=== PATIENT | female | born 1945 | race Caucasian/White ===

== ENCOUNTER 2016-05-18 10:39 | Day surgery (SDC) | payer MEDICARE, BC ==
[2016-05-18] MEDS ORDERED: Lactated Ringers 1,000 ML IV SCH (11:45)
[2016-05-18] MEDS ORDERED: Propofol 200 MG/20 ML SDV ONE (13:01)
[2016-05-18] MEDS ORDERED: fentaNYL 100 MCG/2 ML SDV ONE (13:01)
[2016-05-18] MEDS ORDERED: Midazolam 1 MG/ML 2 ML SDV ONE (13:01)
[2016-05-18 14:38] VITALS: BP 131/69
--- NOTE | 2016-05-19 07:26 | OR ---
DATE OF PROCEDURE: 05/19/2015 PREOP DIAGNOSIS: Strong family history of colon cancer--brother of colon cancer. POSTOP DIAGNOSIS: Strong family history of colon cancer--rother of colon cancer. Two colon polyps, right colon and distal rectum. PROCEDURE: Colonoscopy to the cecum with biopsy resection of small right colon polyp and biopsy followed by snare cautery polypectomy of larger distal rectal polyp. ANESTHESIA: IV anesthesia with monitored anesthesia care. INDICATION: This 70-year-old white female is referred for a colonoscopy because of strong family history of colon cancer. Her brother of colon cancer. She says her last colonoscopic exam was in 2010. I counseled her for the procedure including risks and alternatives, and she gave her informed consent to proceed. PROCEDURE IN DETAIL: The patient was placed in the left lateral decubitus position. IV anesthesia was administered by the Anesthesia Service. Time-out was held. A rectal exam was performed, which was unremarkable. The flexible video Olympus colonoscope was introduced through her anus, up her rectum, and out her colon all way to the cecum. En route, in the right colon, we saw a small polyp, which was removed with the biopsy forceps. Once the cecum was reached, the scope was slowly withdrawn examining the mucosa throughout. No additional mucosal abnormalities were noted until we reached the distal rectum. Here, we saw a fairly large polyp. We initially biopsied this and then placed a snare about its base. The polyp was elevated up away from the bowel wall and amputated as electrocautery was applied. The polyp was aspirated through the scope and captured in a polyp trap. The scope was retroflexed with the distal rectum appearing well. The scope was straightened and removed. She tolerated the procedure well. Eladio Robledo MD /[id number] [facility]
== END 2016-05-18 14:47 | disposition home or self-care (01) ==
LOC: JP.SDS 10:39
PROVIDERS: ATTEND Surgery
DX: Z12.11 Encounter for screening for malignant neoplasm of colon (principal); D12.2 Benign neoplasm of ascending colon; D12.8 Benign neoplasm of rectum
CPT/HCPCS: 45380; 45385; 88305; J2250; J2704; J3010; J7120

== ENCOUNTER 2016-05-24 09:55 | Emergency (ER) | payer MEDICARE, BC ==
[2016-05-24 10:05] VITALS: BP 128/71
--- NOTE | 2016-05-24 10:25 | EDM.PDOC ---
ED HPI GI/ABDOMINAL - General Chief Complaint: Gastrointestinal Problem Stated Complaint: HAD COLONOSCOPY/HAVING BLEEDING Time Seen by Provider: 05/24/16 10:14 Source: Reports: Patient, RN notes reviewed History Limitations: Reports: No limitations - History of Present Illness INITIAL COMMENTS - FREE TEXT/NARRATIVE: 70-year-old female presents emergency department for a complaint of large bloody stool with clots happened early this morning, she is postop day 6 from a colonoscopy review of colonoscopy records show that she had a polypectomy one large polyp done via hot snare in the rectal vault area she denies any abdominal pain nausea vomiting or lightheadedness - Related Data Allergies/ADRs: Allergies Allergy/AdvReac Type Severity Reaction Status Date / Time No Known Allergies Allergy Verified 01/15/13 08:57 Home Meds: Home Meds Niacin 500 mg PO DAILY 05/17/16 [History] [place]-3 Fatty Acids [Fish Oil] 1,200 mg PO DAILY 05/17/16 [History] Pravastatin [Pravachol] 80 mg PO BEDTIME 05/17/16 [History] Past Medical History Cardiovascular History: Reports: High cholesterol Gastrointestinal History: Reports: Chronic constipation, Colon polyp, Diverticulosis [employer]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: Reports: , Spontaneous Musculoskeletal History: Reports: Arthritis, Fracture Dermatologic History: Reports: Other (see below) Other Dermatologic History: rosacia - Infectious Disease History Infectious Disease History: Reports: Chicken pox, Measles, Mumps - Past Surgical History Cardiovascular Surgical History: Reports: None GI Surgical History: Reports: Appendectomy, Cholecystectomy, Colonoscopy, EGD, Polypectomy, Small bowel Female Surgical History: Reports: section, D&C, Other (see below) Other Female Surgeries/Procedures: had D&C 06-03-2015 Musculoskeletal Surgical History: Reports: Carpal tunnel Dermatological Surgical History: Reports: None Social & Family History - Family History Cardiac: Reports: Hypertension : Reports: Renal calculus Musculoskeletal: Reports: Arthritis Endocrine/Metabolic: Reports: Diabetes, type II Oncologic: Reports: Colon - Tobacco Use Smoking Status *Q: Never Smoker - Caffeine Use Caffeine Use: Reports: Soda - Recreational Drug Use Recreational Drug Use: No ED ROS GENERAL - Review of Systems Review Of Systems: See Below Constitutional: Reports: no symptoms Respiratory: Reports: No Symptoms Cardiovascular: Reports: No symptoms GI/Abdominal: Reports: Bloody stool. Denies: Abdominal pain, Constipation, Diarrhea, Nausea, Vomiting ED EXAM, GI/ABD - Physical Exam Exam: See Below Exam Limited By: No limitations General Appearance: alert, WD/WN, no apparent distress Respiratory/Chest: no respiratory distress, lungs clear, normal breath sounds, no accessory muscle use Cardiovascular: regular rate, rhythm, no murmur GI/Abdominal: soft, non tender Course - Vital Signs Last Recorded V/S: Last Vital Signs Temp 96.6 F 05/24/16 10:04 Pulse 66 05/24/16 10:04 Resp 16 05/24/16 10:04 BP 128/71 05/24/16 10:04 Pulse Ox 97 05/24/16 10:04 - Orders/Labs/Meds Labs: Laboratory Tests 05/24/16 05/24/16 Range/Units 10:31 10:31 WBC 5.4 (4.5-11.0) K/uL RBC 4.84 (3.30-5.50) M/uL Hgb 15.3 H (12.0-15.0) g/dL Hct 43.7 (36.0-48.0) % MCV 90 (80-98) fL MCH 32 H (27-31) pg MCHC 35 (32-36) % Plt Count 250 (150-400) K/uL Neut % (Auto) 48 (36-66) % Lymph % (Auto) 38 (24-44) % Gregg % (Auto) 12 H (2-6) % Eos % (Auto) 2 (2-4) % Baso % (Auto) 1 (0-1) % Sodium 142 (140-148) mmol/L Potassium 3.9 (3.6-5.2) mmol/L Chloride 106 (100-108) mmol/L Carbon Dioxide 27 (21-32) mmol/L Anion Gap 8.6 (5.0-14.0) mmol/L BUN 18 (7-18) mg/dL Creatinine 1.0 (0.6-1.0) mg/dL Est Cr Clr Drug Dosing 49.32 mL/min Estimated GFR (MDRD) 55 L (>60) Glucose 95 (74-106) mg/dL Calcium 8.8 (8.5-10.1) mg/dL Departure - Departure Time of Disposition: 12:04 Disposition: Home, Self-Care 01 Condition: good Clinical Impression: Colonoscopy causing post-procedural bleeding Forms: ED Department Discharge Additional Instructions: Please followup with your primary care provider in 3-5 days if not better, please call return to the emergency department with worsening of symptoms. - Assessment/Plan Plan: Assessment Acuity = acute Site and laterality = bright red blood per stool Etiology = secondary to snare polypectomy. Postop day #6 Manifestations = none Location of injury = home Lab values = CBC, BMP, upright abdominal film within normal limits Plan Called and discussed the case with Dr. Robledo general surgery recommended watchful waiting follow clinic as needed Patient was in agreement with the plan all questions were answered, they were instructed to return to the emergency department or call for worsening symptoms. This note was dictated using [employer] voice recognition software please call with any questions.
--- NOTE | 2016-05-24 11:30 | CR ---
No evidence for free air. Nonobstructive bowel gas pattern. Moderate amount of fecal residual.
== END 2016-05-24 12:13 | disposition home or self-care (01) ==
LOC: JP.ED 09:55
DX: K91.840 Postprocedural hemorrhage of a digestive system organ or structure following a digestive system procedure (principal); E78.00 Pure hypercholesterolemia, unspecified; Z90.49 Acquired absence of other specified parts of digestive tract; Z79.899 Other long term (current) drug therapy; Z98.890 Other specified postprocedural states
CPT/HCPCS: 36415; 74000; 74000-26; 80048; 85025; 99284

== ENCOUNTER 2017-02-24 06:44 | Day surgery (SDC) | payer MEDICARE, BC ==
[2017-02-24] MEDS ORDERED: fentaNYL 100 MCG/2 ML SDV ONE (07:25)
[2017-02-24] MEDS ORDERED: Propofol 200 MG/20 ML SDV ONE (07:25)
[2017-02-24] MEDS ORDERED: Midazolam 1 MG/ML 2 ML SDV ONE (07:25)
[2017-02-24] MEDS ORDERED: Lactated Ringers 1,000 ML IV SCH (07:30)
[2017-02-24 10:08] VITALS: BP 120/82
--- NOTE | 2017-02-24 12:48 | OR ---
DATE OF PROCEDURE: 02/24/2017 PREOPERATIVE DIAGNOSIS: History of adenomatous colon polyps. POSTOPERATIVE DIAGNOSES: Three small cecal polyps near each other and history of adenomatous colon polyps. PROCEDURES: Colonoscopy to the cecum with biopsy resection of 3 cecal polyps, sent to the laboratory as one specimen. SURGEON: Eladio Robledo MD. ANESTHESIA: IV anesthesia with monitored anesthesia care. INDICATION: This 71-year-old white female is here for a colonoscopy. She has history of a right colon tubular adenoma and a distal rectum tubulovillous adenoma. I counseled her for a colonoscopy with possible biopsy and/or polypectomy including risks and alternatives, and she gave her informed consent to proceed. DESCRIPTION OF PROCEDURE: The patient was placed in the left lateral decubitus position. IV anesthesia was administered by the Anesthesia Service. Time-out was held. A rectal exam was performed, which was unremarkable. The flexible video Olympus colonoscope was introduced through her anus, up her rectum, and out her colon all the way to the cecum. In the cecum, we saw three separate polyps, and these were removed with the biopsy forceps. They were fairly small. They were sent to the laboratory as one specimen. The scope was then slowly withdrawn, examining the mucosa throughout. No right colon polyp was seen. The one from before was gone. The scope was withdrawn further and no other lesions were noted. The scope was retroflexed in the rectum with the distal rectum appearing unremarkable. No evidence of a persistent polyp here. The scope was straightened and removed. She tolerated the procedure well. Eladio Robledo MD /[id number] [facility]
== END 2017-02-24 10:05 | disposition home or self-care (01) ==
LOC: JP.SDS 06:44
PROVIDERS: ATTEND Surgery
DX: Z12.11 Encounter for screening for malignant neoplasm of colon (principal); D12.0 Benign neoplasm of cecum; Z86.010 Personal history of colon polyps
CPT/HCPCS: 45380; J2250; J2704; J3010; J7120; 88305

== ENCOUNTER 2018-03-23 06:22 | Day surgery (SDC) | payer MEDICARE, BC ==
[2018-03-23] MEDS ORDERED: Lactated Ringers 1,000 ML IV SCH (07:00)
[2018-03-23] MEDS ORDERED: Midazolam 1 MG/ML 2 ML SDV ONE (07:22)
[2018-03-23] MEDS ORDERED: Propofol 200 MG/20 ML SDV ONE (07:22)
[2018-03-23] MEDS ORDERED: fentaNYL 100 MCG/2 ML SDV ONE (07:22)
[2018-03-23 09:25] VITALS: BP 111/60
--- NOTE | 2018-03-23 10:54 | OR ---
DATE OF PROCEDURE: 03/23/2018 PREOPERATIVE DIAGNOSES: History of polyps, strong family history of colon cancer-- brother of colon cancer. POSTOPERATIVE DIAGNOSES: Small distal rectal polyp, history of polyps, strong family history of colon cancer--brother of colon cancer. PROCEDURE PERFORMED: Colonoscopy to the cecum with biopsy resection of small distal rectal polyp. SURGEON: Eladio Robledo MD. ANESTHESIA: IV anesthesia with monitored anesthesia care. INDICATION: This 72-year-old white female was referred for a colonoscopy because of a history of colon polyps and a strong family history of colon cancer in that her brother of colon cancer. She says her last colonoscopic exam was done a year ago at which point three polyps were removed. I counseled her for the procedure including risks and alternatives and she gave her informed consent to proceed. DESCRIPTION OF PROCEDURE: The patient was placed in the left lateral decubitus position. IV anesthesia was administered by the Anesthesia Service. Time-out was held. A rectal exam was performed which was unremarkable. The flexible video Olympus colonoscope was introduced through her anus, up her rectum, and out her colon all the way to the cecum. Once the cecum was reached, the scope was slowly withdrawn examining the mucosa throughout. No mucosal abnormalities were noted until we reached the rectum. Here, we retroflexed the scope to examine the distal rectum and saw a small polyp. This was removed with a single bite of the biopsy forceps. The scope was then straightened and removed. She tolerated the procedure well. Eladio Robledo MD /[id number] [facility]
== END 2018-03-23 09:20 | disposition home or self-care (01) ==
LOC: JP.SDS 06:22
PROVIDERS: ATTEND Surgery
DX: Z12.11 Encounter for screening for malignant neoplasm of colon (principal); K63.5 Polyp of colon; Z86.010 Personal history of colon polyps; Z80.0 Family history of malignant neoplasm of digestive organs
CPT/HCPCS: 45380; 88305; J2250; J2704; J3010; J7120

== ENCOUNTER 2020-04-16 06:21 | Day surgery (SDC) | payer MEDICARE, BC ==
[2020-04-16] MEDS ORDERED: Sodium Chloride 0.9% 1,000 ML IV SCH (07:00)
[2020-04-16] MEDS ORDERED: Propofol 200 MG/20 ML SDV ONE (07:30)
[2020-04-16] MEDS ORDERED: fentaNYL 100 MCG/2 ML SDV ONE (07:30)
[2020-04-16 09:35] VITALS: BP 121/69; PULSE 48
--- NOTE | 2020-04-16 11:04 | OR ---
DATE OF PROCEDURE: 04/16/2020 SURGEON: Mark Ray MD PROCEDURE: Colonoscopy. FINDINGS: Ascending colon polyps, approximately 5 mm, completely removed using cold biopsy forceps. COMPLICATIONS: None. COMMISSARY ASSISTANT: None. ANESTHESIA: MAC. RISKS: Risks, benefits, alternatives, and limitations including, but not limited to infection, bleeding, and perforation were explained to the patient who wished to proceed. PROCEDURE IN DETAIL: The patient was placed in left lateral decubitus position. Digital rectal exam was performed without abnormality. Scope was introduced and advanced atraumatically to the ileocecal valve. A photo was taken of this. Scope was brought back to the ascending, transverse, descending colon, and retroflexed. No evidence of old or new blood. No masses. The aforementioned polyp was completely removed using a hot snare wire device. No abnormalities on retroflexion. No colitis. No diverticulosis. Greater than 8 minutes was spent removing the scope. The patient tolerated the procedure well and the prep was acceptable, approximately 95% of the luminal surface could be seen. Mark Ray MD /[id number]
== END 2020-04-16 09:45 | disposition home or self-care (01) ==
LOC: JP.SDS 06:21
PROVIDERS: ATTEND Surgery
DX: Z12.11 Encounter for screening for malignant neoplasm of colon (principal); D12.2 Benign neoplasm of ascending colon; Z01.812 Encounter for preprocedural laboratory examination; Z20.822 Contact with and (suspected) exposure to COVID-19
CPT/HCPCS: 45385; 88305; J2704; J3010; J7030; U0002

== ENCOUNTER 2021-09-02 05:46 | Day surgery (SDC) | payer MEDICARE, BC ==
[2021-09-02] MEDS: Sodium Chloride 0.9% 10 ML Syringe FLUSH ONE (06:21)
[2021-09-02 07:55] VITALS: BP 151/78; PULSE 54
== END 2021-09-02 08:00 | disposition home or self-care (01) ==
LOC: JP.SDS 05:46
PROVIDERS: ATTEND Ophthalmology
DX: H25.12 Age-related nuclear cataract, left eye (principal); K21.9 Gastro-esophageal reflux disease without esophagitis
CPT/HCPCS: J3490

== ENCOUNTER 2021-10-07 05:56 | Day surgery (SDC) | payer MEDICARE, BC ==
[2021-10-07] MEDS ORDERED: Sodium Chloride 0.9% 10 ML Syringe FLUSH PRN (06:30)
[2021-10-07 07:49] VITALS: BP 149/65; PULSE 57
== END 2021-10-07 08:00 | disposition home or self-care (01) ==
LOC: JP.SDS 05:56
PROVIDERS: ATTEND Ophthalmology
DX: H25.11 Age-related nuclear cataract, right eye (principal)
CPT/HCPCS: 66984; J3490; V2632